=== PATIENT | male | born 1955 | race African-American/Black ===

== ENCOUNTER 2018-11-23 15:17 | Emergency (ER) | payer SELFPAY | END 2018-11-23 16:36 | disposition left against medical advice (07) | LOC: FTE 15:17 | DX: Z53.21 Procedure and treatment not carried out due to patient leaving prior to being seen by health care provider (principal) ==

== ENCOUNTER 2018-11-23 16:37 | Emergency (ER) | payer SELFPAY ==
[2018-11-23] MEDS: IBUPROFEN 600 MG TAB PO (18:34)
== END 2018-11-23 19:50 | disposition left against medical advice (07) ==
LOC: FTE 16:37
DX: S00.511A Abrasion of lip, initial encounter (principal); R40.2412 Glasgow coma scale score 13-15, at arrival to emergency department; S99.922A Unspecified injury of left foot, initial encounter; Y04.8XXA Assault by other bodily force, initial encounter
CPT/HCPCS: 73110; 73110-RT; 73630-LT; 99284-25

== ENCOUNTER 2018-11-27 06:09 | Emergency (ER) | payer SELFPAY, OTHER | END 2018-11-27 06:43 | disposition home or self-care (01) | LOC: FTE 06:09 | DX: M54.2 Cervicalgia (principal) | CPT/HCPCS: 99283 ==